=== PATIENT | female | born 1975 | race Caucasian/White ===

== ENCOUNTER 2023-02-13 17:00 | Emergency (ER) | payer OTHER, BC, SELFPAY ==
[2023-02-13 17:05] VITALS: BP 140/80; RESP 16; TEMP 37.2; O2SAT 95; BMI 49.1
[2023-02-13 17:08] VITALS: O2SAT 98
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
[2023-02-13 18:31] VITALS: PULSE 88; RESP 16; O2SAT 99
== END 2023-02-13 18:33 | disposition home or self-care (01) ==
PROVIDERS: Emergency Provider Emergency Medicine Emergency Medical Services
DX: S42.031A Displaced fracture of lateral end of right clavicle, initial encounter for closed fracture (principal); V53.6XXA Passenger in pick-up truck or van injured in collision with car, pick-up truck or van in traffic accident, initial encounter
CPT/HCPCS: 71045; 73000; 99283

== ENCOUNTER 2023-03-19 09:22 | Outpatient (OUT) | payer OTHER, BC, SELFPAY ==
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
== END 2023-03-19 09:23 | disposition home or self-care (01) ==
LOC: RAD 09:23
PROVIDERS: Visit Provider Orthopaedic Surgery
DX: S42.034A Nondisplaced fracture of lateral end of right clavicle, initial encounter for closed fracture (principal)
CPT/HCPCS: 73000

== ENCOUNTER 2023-04-16 14:34 | Outpatient (OUT) | payer OTHER, BC, SELFPAY ==
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
== END 2023-04-16 14:35 | disposition home or self-care (01) ==
LOC: MRI 14:34
PROVIDERS: Visit Provider Orthopaedic Surgery
DX: S42.034A Nondisplaced fracture of lateral end of right clavicle, initial encounter for closed fracture (principal)
CPT/HCPCS: 73221